=== PATIENT | male | born 1960 | race Caucasian/White ===

== ENCOUNTER → 2021-05-26 10:45 | Outpatient (CLI) | payer OTHER, SELFPAY ==
--- NOTE | ~2021-05-26 | XR_ITS ---
XR lumbar spine 2-3V DATE: 05/26/2021 11:37 INDICATION: Leg pain TECHNIQUE: AP, lateral, coned lateral lumbosacral views COMPARISON: 05/15/2019 lumbar spine FINDINGS: There is suspected L5 pars interarticularis defects with grade 1 anterolisthesis at L5-S1, stable since 05/15/2019. Diffuse osteopenia. No other fracture or bone destruction is evident. The lumbar pedicles are intact. There is moderate degenerative disc disease at L2-3, L3-4 and L5-S1. The sacroiliac joints appear normal. Surgical clips, right upper quadrant, consistent with cholecystectomy IMPRESSION: Grade 1 anterolisthesis at L5-S1, likely due to pars interarticularis defects Moderate degenerative disc disease at L2-3, L3-4 and L5-S1 Osteopenia Reviewed, dictated and finalized at location A. IMPRESSION: Grade 1 anterolisthesis at L5-S1, likely due to pars interarticular is defects Moderate degenerative disc disease at L2-3, L3-4 and L5-S1 Osteopenia
== END ==
PROVIDERS: PCP Family Medicine; Visit Provider Family Medicine
DX: M85.88 Other specified disorders of bone density and structure, other site (principal); M51.36 Other intervertebral disc degeneration, lumbar region
CPT/HCPCS: 72100

== ENCOUNTER → 2021-11-26 08:50 | Outpatient (CLI) | payer OTHER, SELFPAY ==
--- NOTE | ~2021-11-26 | MR_ITS ---
EXAMINATION: MR lumbar spine wo con EXAM DATE: 11/26/2021 09:34 INDICATION: Spondylosis with radiculopathy, lumbar region. TECHNIQUE: Multi-sequential, multiplanar MR images of the lumbar spine were obtained without contrast . Sagittal T1, T2, T2 fat saturation images. Axial T2 weighted images. There is no prior study for comparison. FINDINGS: Mild to moderate diffuse thoracolumbar disc disease with small Schmorl's nodes at most of t he endplates. Small L5-S1 annular fissure. The conus medullaris terminates at the T12-L1 level and sarmiento s normal signal intensity and morphology. There are no suspicious marrow signal abnormalities. There is 3 mm anterolisthesis L5 on S1. The vertebral bodies are otherwise aligned. Paraspinal soft tissue is unremarkable. Mild lumbar levoscoliosis. Level by level evaluation: T12-L1: There is a mild diffuse disc bulge. Facet arthropathy: Mild. Neural foraminal stenosis: No stenosis. Central canal stenosis: No stenosis. L1-L2: There is a minimal diffuse disc bulge. Facet arthropathy: Mild. Neural foraminal stenosis: No stenosis. Central canal stenosis: No stenosis. L2-L3: There is a moderate diffuse disc bulge. Facet arthropathy: Moderate. Neural foraminal stenosis: Mild to moderate left, mild right. Central canal stenosis: Mild to moderate. L3-L4: There is a moderate diffuse disc bulge. Facet arthropathy: Moderate. Neural foraminal stenosis: Moderate bilateral. Central canal stenosis: Moderate. L4-L5: There is a mild to moderate diffuse disc bulge. Facet arthropathy: Mild to moderate. Neural foraminal stenosis: Mild to moderate left, mild right. Central canal stenosis: Mild. L5-S1: There is a moderate diffuse disc bulge. Facet arthropathy: Mild. Neural foraminal stenosis: Mild to moderate bilateral. Central canal stenosis: Mild. IMPRESSION: 1. Moderate L3-4 spondylosis, less at other levels. Reviewed, dictated and finalized at location A. EE WEIGHER
== END ==
PROVIDERS: PCP Family Medicine; Visit Provider Family Medicine
DX: M47.26 Other spondylosis with radiculopathy, lumbar region (principal)
CPT/HCPCS: 72148

== ENCOUNTER 2022-07-12 01:21 | Day surgery (SDC) | payer OTHER, SELFPAY ==
[2022-06-27 16:10] VITALS: BMI 43.0
[2022-07-12 07:45] VITALS: BP 162/84; PULSE 70; RESP 18; TEMP 36.2; O2SAT 99
[2022-07-12] MEDS: LACTATED RINGERS 1,000 ML 150 ML IV CONT (07:56)
--- NOTE | 2022-07-12 08:09 | P.PNAN_ITS ---
Anes - Initial Pre Proc Eval Procedure: Operation Date: 07/12/22 08:30 Proposed Procedures p Screening Colonoscopy - Aj Conley MD Date/Time: 07/12/22 08:09 Surgeon: Aj Conley MD Pre Op Diagnosis: neoplasm screeing, history of colon polyps Patient Data Age: 61 Gender: M Height: 1.78 m Weight: 132.5 kg Last Vital Signs Temp 97.1 F L 07/12/22 07:45 Pulse 70 07/12/22 07:45 Resp 18 07/12/22 07:45 BP 162/84 H 07/12/22 07:45 Pulse Ox 99 07/12/22 07:45 O2 Del Method Room Air 07/12/22 07:45 Allergies Allergy/AdvReac Type Severity Reaction Status Date / Time No Known Allergies Allergy Unknown NONE Verified 07/12/22 07:44 Home Medications Medication Instructions Recorded Confirmed Type peg 3350-electrolytes 236 240 ml PO Q10M #4,000 mL 06/03/22 07/12/22 Rx gram-22.74 gram-6.74 gram-5.86 gram solution (Golytely) ascorbic acid (vitamin C) 500 mg 500 mg PO DAILY 06/27/22 07/12/22 History tablet gabapentin 600 mg tablet 600 mg PO TID 06/27/22 07/12/22 History hydrochlorothiazide 25 mg tablet 25 mg PO DAILY 06/27/22 07/12/22 History losartan 100 mg tablet 100 mg PO DAILY 06/27/22 07/12/22 History lovastatin 40 mg tablet 40 mg PO DAILY 06/27/22 07/12/22 History meloxicam 15 mg tablet 15 mg PO DAILY 06/27/22 07/12/22 History multivit with minerals-iron 18 1 tablet PO DAILY 06/27/22 07/12/22 History mg-folic ac 400 mcg-vit K 25 mcg tablet (Adults Multivitamin) omega-3 fatty acids-vitamin E 1 cap PO DAILY 06/27/22 07/12/22 History 1,000 mg capsule Patient hx anesthesia problems: none Family hx anesthesia problems: none Results Review: All pre-operative results and documents have been reviewed as part of the pre- operative evaluation. PMFSH Social History Social History Smoking packs per day: 3 Smoking cigarettes per day: 60.0 Years smoked: 20 Smoking pack-years: 60.00 Smoking status: Former smoker Tobacco type: cigarettes Alcohol intake: current Substance use: current Substance use type: does not use Living arrangements: with family Spiritual care concerns: No Anes - Eval Final PreProcedure Day of Procedure 07/12/22 08:09 Patient weight: morbidly obese Heart: regular rate and rhythm Lungs: clear to auscultation Airway: Mallampati scale class II Neurological: alert and oriented Last oral intake: >/= 8 hours ASA classification: III Emergent: no Anesthetic plan: proceed Anesthesia type and monitoring: general GIVS and standard monitoring Results Review: All pre-operative results and documents have been reviewed as part of the pre- operative evaluation. Informed Consent: The patient's anesthetic plan and its attendant risks and benefits were discussed with the patient/family/POA. Questions were solicited and answers provided to the satisfaction of the patient/family/POA.
--- NOTE | 2022-07-12 08:27 | P.HP_ITS ---
History of Present Illness History of Present Illness Consent: Risks, benefits, and alternatives have been discussed and questions answered. Patient agrees to proceed with procedure. Chief complaint: neoplasm screeing, history of colon polyps Narrative: Connor Spain is a 61 year old male Presents for screening colonoscopy. Patient's current weight appetite bowel movements are normal. Patient denies abdominal pain. Patient has a prior history of colon polyps. Most recent adenomatous colon polyp removed from the colon 2016. Family history noncontributory. Patient presents today for screening colonoscopy. [facility] [place] Social History Social History Smoking packs per day: 3 Smoking cigarettes per day: 60.0 Years smoked: 20 Smoking pack-years: 60.00 Smoking status: Former smoker Tobacco type: cigarettes Alcohol intake: current Substance use: current Substance use type: does not use Living arrangements: with family Spiritual care concerns: No Meds Home Medications and Allergies Home Medications Medication Instructions Recorded Confirmed Type peg 3350-electrolytes 236 240 ml PO Q10M #4,000 mL 06/03/22 07/12/22 Rx gram-22.74 gram-6.74 gram-5.86 [facility] ascorbic acid (vitamin C) 500 mg 500 mg PO DAILY 06/27/22 07/12/22 History tablet gabapentin 600 mg tablet 600 mg PO TID 06/27/22 07/12/22 History hydrochlorothiazide 25 mg tablet 25 mg PO DAILY 06/27/22 07/12/22 History losartan 100 mg tablet 100 mg PO DAILY 06/27/22 07/12/22 History lovastatin 40 mg tablet 40 mg PO DAILY 06/27/22 07/12/22 History meloxicam 15 mg tablet 15 mg PO DAILY 06/27/22 07/12/22 History multivit with minerals-iron 18 1 tablet PO DAILY 06/27/22 07/12/22 History mg-folic ac 400 mcg-vit K 25 mcg tablet (Adults Multivitamin) omega-3 fatty acids-vitamin E 1 cap PO DAILY 06/27/22 07/12/22 History 1,000 mg capsule Allergies Allergy/AdvReac Type Severity Reaction Status Date / Time No Known Allergies Allergy Unknown NONE Verified 07/12/22 07:44 Vital Signs Vital Signs - 24 hr 07/12/22 07:45 Temperature 97.1 F L Pulse Rate 70 Respiratory Rate 18 Blood Pressure 162/84 H Pulse Oximetry 99 Oxygen Delivery Room Air Exam Narrative: Physical exam reveals patient to be alert. Vital signs stable. HEENT exam is unremarkable. Patient is anicteric. Lungs are clear to auscultation and percussion. Heart is without murmur or extra sounds. Abdomen bowel sounds are present soft nontender with no organomegaly. Digital external rectal exam is normal. Assessment and Plan Assessment and plan (1) History of colon polyps: Code(s): Z86.010 - Personal history of colonic polyps Status: Acute Assessment and Plan: Patient has a history of adenomatous colon polyp 2017. Plan is for surveillance colonoscopy now and consider this a 5 year intervals in the future.
[2022-07-12 08:54] VITALS: BP 128/59; PULSE 66; RESP 13; O2SAT 97
[2022-07-12 09:04] VITALS: BP 126/61; PULSE 62; RESP 21; O2SAT 100
[2022-07-12 09:14] VITALS: BP 137/71; PULSE 65; RESP 14; O2SAT 100
== END 2022-07-12 09:24 | disposition home or self-care (01) ==
PROVIDERS: PCP Family Medicine; Visit Provider Internal Medicine Gastroenterology
PROC: 0DJD8ZZ Inspection of Lower Intestinal Tract, Via Natural or Artificial Opening Endoscopic (ICD-10-PCS; CPT 45378; principal; 2022-07-12 08:30)
DX: Z12.11 Encounter for screening for malignant neoplasm of colon (principal); Z86.010 Personal history of colon polyps; K57.30 Diverticulosis of large intestine without perforation or abscess without bleeding; K64.8 Other hemorrhoids; Z87.891 Personal history of nicotine dependence; E66.01 Morbid (severe) obesity due to excess calories; Z68.41 Body mass index [BMI] 40.0-44.9, adult
CPT/HCPCS: 45378; J2704; J7120

== ENCOUNTER 2023-01-06 14:38 | Outpatient (CLI) | payer OTHER, SELFPAY ==
--- NOTE | 2023-01-06 14:54 | ECG_ITS ---
Measurements Intervals [place] Rate: 71 P: 42 [place]: 211 QRS: 0 QRSD: 110 T: 11 QT: 399 QTc: 434 Interpretive Statements SINUS RHYTHM WITH FIRST DEGREE AV BLOCK LOW QRS VOLTAGE IN PRECORDIAL LEADS [QRS DEFLECTION < 1.0 mV IN CHEST LEADS] INFERIOR MYOCARDIAL INFARCTION [40+ ms Q WAVE AND/OR ST/T ABNORMALITY IN II/aVF], PROBABLY OLD NO PREVIOUS ECG AVAILABLE FOR COMPARISON Electronically Signed On 01-07-2023 15:02:43 CDT by Melonie Fermin M.D.
== END 2023-01-06 14:39 | disposition home or self-care (01) ==
PROVIDERS: PCP Family Medicine; Visit Provider Surgery
DX: K42.9 Umbilical hernia without obstruction or gangrene (principal); I10 Essential (primary) hypertension; Z01.818 Encounter for other preprocedural examination
CPT/HCPCS: 36415; 86850; 86900; 86901; 93005

== ENCOUNTER 2023-01-08 01:05 | Day surgery (SDC) | payer OTHER, SELFPAY ==
[2022-12-31 14:27] VITALS: BMI 41.5
--- NOTE | 2022-12-31 14:31 | PC.NURSE ---
Report to the Outpatient Waiting Room, entrance under the green pavilion located off [facility], at time 6:00 on date 01/08/23. Planned Procedure Time: 7:30. Time changes happen often and if your time is changed the preop area will call you the afternoon before. - You and your visitor will be asked to self-screen and do not enter if you have any COVID symptoms. - Only one visitor is requested with a max of two and NO children visitors are allowed at this time. - The patient visitor may be requested to leave or wait in car when not with patient due to distancing restrictions. - A mask is optional within the hospital at this time. Patients may have clear liquids (water, carbonated beverages, clear teas, apple juice) until 3 hours prior to surgery (4:30) with a maximum of 20 ounces. - No food from midnight until time of surgery Take the following medications with a SIP of water the morning of surgery: GABAPENTIN DO NOT STOP ANY OF YOUR OTHER PRESCRIPTION MEDICATIONS PRIOR TO SURGERY EXCEPT THE FOLLOWING Medications to discontinue per physician: VITAMINS/SUPPLEMENTS Date to take last dose: 01/04/23 Please no make-up, nail citizen of [place], hairspray, perfume, deodorant, or body powder the day of surgery. No jewelry (including any body piercings) or valuables the day of surgery, leave them at home. Please take a shower or bath the night before, or the morning of, surgery with an antibacterial soap (HIBICLENS). Wear comfortable, loose fitting clothing. - Jewelry must be removed prior to entering the operating room. Rings and piercings that are not removed may be cut off. - The hospital will not accept responsibility for valuables. - Please leave all valuables, including medications, at home the day of surgery. If you are going home after surgery, a licensed driver starting gate must drive you home. - NO public transportation without another adult if you receive anesthesia. - We recommend that an adult stay with you for 24 hours following discharge. - We also recommend that you do not drive, make important decision, drink alcoholic beverages, or take any drugs that were not prescribed by your health care provider for at least 24 hours after your discharge time. Follow any additional instructions given to you from your surgeon. If you or anyone in your household have experienced Covid symptoms in the past week, please notify your surgeon or the nurse liaison at the phone number below for possible testing. Telephone instructions given to MARLYN GARRETT and asked if any additional questions and then verbalized understanding. Patient advised to call surgeon office or pre surgery nurse liaison [phone] if any additional questions.
--- NOTE | 2023-01-07 13:10 | WPDANESEPPF ---
Anes - Initial Pre Proc Eval Procedure: Operation Date: 01/08/23 07:30 Proposed Procedures p Laparoscopic Umbilical Hernia Repair with Mesh, Davinci Assisted - Dave Gruber DO Date/Time: 01/07/23 13:10 Surgeon: Dave Gruber DO Pre Op Diagnosis: umbilical hernia Patient Data Age: 62 Gender: M Height: 1.78 m Weight: 131.55 kg Allergies Allergy/AdvReac Type Severity Reaction Status Date / Time No Known Allergies Allergy Verified 01/08/23 06:23 Home Medications Medication Instructions Recorded Confirmed Type ascorbic acid (vitamin C) 500 mg 500 mg PO DAILY 06/27/22 01/08/23 History tablet hydrochlorothiazide 25 mg tablet 25 mg PO DAILY 06/27/22 01/08/23 History losartan 100 mg tablet 100 mg PO DAILY 06/27/22 01/08/23 History lovastatin 40 mg tablet 40 mg PO DAILY 06/27/22 01/08/23 History meloxicam 15 mg tablet 15 mg PO DAILY 06/27/22 01/08/23 History multivit with minerals-iron 18 1 tablet PO DAILY 06/27/22 01/08/23 History mg-folic ac 400 mcg-vit K 25 mcg tablet (Adults Multivitamin) gabapentin 800 mg tablet 800 mg PO TID 12/03/22 01/08/23 History ECG: Date of Service: 01/06/23 Procedure(s): CA 12 lead EKG Accession Number(s): [id number] cc: ~ ? Measurements Intervals? [place]? Rate: ? 71 ? P:? 42 NE: ? 211? QRS:? 0 QRSD: ? 110? T:? 11 QT: ? 399? QTc:? 434? Interpretive Statements SINUS RHYTHM WITH FIRST DEGREE AV BLOCK LOW QRS VOLTAGE IN PRECORDIAL LEADS [QRS DEFLECTION < 1.0 mV IN CHEST LEADS] INFERIOR MYOCARDIAL INFARCTION [40+ ms Q WAVE AND/OR ST/T ABNORMALITY IN II/aVF], PROBABLY OLD NO PREVIOUS ECG AVAILABLE FOR COMPARISON Electronically Signed On 01-07-2023 15:02:43 CDT by Melonie Fermin M.D Patient hx anesthesia problems: none Family hx anesthesia problems: none Results Review: All pre-operative results and documents have been reviewed as part of the pre-operative evaluation. [facility] Past Medical History Medical History (Updated 01/07/23 @ 13:10 by Al Ramos MD) Abnormal results of liver function studies Benign essential hypertension Chronic venous hypertension (idiopathic) without complications of bilateral lower extremity Elevated blood-pressure reading, without diagnosis of hypertension Erectile dysfunction Hypercholesterolemia Hyperlipidemia, unspecified Impaired fasting glucose Morbid obesity with BMI of 40.0-44.9, adult Obstructive sleep apnea Other obesity due to excess calories Other spondylosis with radiculopathy, lumbar region Sciatica, right side Umbilical hernia Social History Social History Smoking packs per day: 3 Smoking cigarettes per day: 60.0 Years smoked: 30 Smoking pack-years: 90.00 Smoking status: Former smoker Tobacco type: cigarettes Second hand tobacco smoke exposure: No Smoking end date: 10/06/04 Alcohol intake: never Substance use: never Substance use type: does not use Lack of Transportation: No Lack of Food: Never True Current Housing: I Have Housing Concerned About Future Housing: No Difficulty Paying Gas/Electric Bills: No Difficulty Paying for Meds: No Currently Unemployed: No Difficulty w/ Childcare or Family Care: No Living arrangements: with family Occupation/Education: occupation Gender identity (if verbalized by the patient): Male Sexual Orientation (if Verbalized by the Patient): Straight or Heterosexual Spiritual care concerns: No Anes - Eval Final PreProcedure Day of Procedure 01/07/23 13:10 Patient weight: morbidly obese Heart: regular rate and rhythm Lungs: clear to auscultation Airway: Mallampati scale class
[2023-01-08] VITALS (10 sets, daily range): BP systolic 112–157; BP diastolic 63–76; PULSE 57–70; RESP 12–18; TEMP 36.2–36.4; O2SAT 91–97
[2023-01-08] MEDS: ACETAMINOPHEN 500 MG TABLET 1000 MG PO (06:40)
[2023-01-08] MEDS: KETOROLAC 15 MG/ML VIAL (*BKC) IV PUSH (06:40)
[2023-01-08] MEDS: LACTATED RINGERS 1,000 ML 30 ML IV CONT ×2 (06:41→10:05)
--- NOTE | 2023-01-08 07:14 | WPDHPUPDATE1 ---
History and Physical Update Update Date/Time: 01/08/23 07:14 History and Physical has been reviewed, including an updated exam of the patient. There are NO changes in the patient's condition. Risks, benefits, and alternatives have been discussed and questions answered. Patient agrees to proceed with procedure.
[2023-01-08] MEDS: ceFAZolin 3 GM/D5W 100 ML 100 ML IVPB (07:29)
--- NOTE | 2023-01-08 09:54 | W.PM.PROC2 ---
Procedure Note - Detailed Date of Procedure 01/08/23 Pre-op Diagnosis umbilical hernia Post-op Diagnosis Same Procedure Performed Laparoscopic 3cm Umbilical Hernia Repair with Mesh, da Stacey assisted Surgeon Dave Gruber DO Anesthesia General and Local (Exparel) Description of Procedure Procedure as well as risks, benefits, and alternatives were discussed with the patient. Written consent was obtained and placed in chart prior to procedure. Patient was brought back to surgical suite. He was placed supine on operating table. Time-out was done to confirm patient and procedure. He was then intubated by the anesthesia department. A bump was placed under his left hip, and the bed was flexed slightly to extend the space between his costal margin and iliac crest. His abdomen was prepped and draped in sterile fashion using chlorhexidine prep. A 5 millimeter incision was made in the left upper quadrant, and a 5 millimeter Optiview trocar was advanced through the abdominal layers under direct visualization. Once inside the abdominal cavity, carbon dioxide insufflation was used to create a pneumoperitoneum. His abdomen was inspected. An 8 millimeter incision was made in the left lower quadrant, and an 8 millimeter robotic trocar was placed under direct visualization. Another 8 millimeter incision was made in the left lateral abdomen, and an 8 millimeter robotic trocar was placed under direct visualization. Exparel was infiltrated along the lateral abdominal peck to perform a transversus abdominis plane block bilaterally. The 5 millimeter port was removed, the incision was extended to 8 millimeters, and a 8 millimeter port was placed under direct visualization. The robotic arms were brought up to the patient's bedside and secured to the ports. The camera and instruments were inserted, and I then moved over to the robotic console and took control of the camera and instruments. After careful thorough inspection of the abdominal cavity, I began my dissection at the hernia. A preperitoneal plane was developed starting along the left lateral abdomen and extending medially and then to the right lateral abdomen using scissors with electrocautery. The hernia sac was reduced from within hernia defect. I then measured the hernia size. The hernia measured 3 cm. The fascia was closed using an 0-Stratafix running suture in a vertical fashion. A 15 cm x 10 cm Bard soft mesh was then placed within the preperitoneal pocket. This was oriented vertically with the mesh centered on the hernia defect. The mesh was then secured to the abdominal wall using 3-0 Vicryl simple interrupted sutures at the 4 corners and at the central portion of the mesh. The peritoneum was then closed over the mesh using 3 0 V lock running absorbable suture. The repair was inspected, and one final inspection was made around the abdominal cavity. The robotic instruments were then removed, and the robotic arms were disengaged from the trocars. The ports were then removed under direct visualization, the camera was removed, and the pneumoperitoneum was released. The 0 Vicryl transfascial suture was tied down. The skin of the incisions was then approximated using 4-0 Monocryl subcuticular suture. Exofin glue was then applied on top. The patient was then awakened from anesthesia, extubated, and transferred to recovery. Implants Bard soft mesh 15 cm x 10 cm Estimated Blood Loss 5 Complications No immediate complications Condition Stable Disposition Same day [facility] Billing Surgery - Charge Forward: Surgery Billing
[2023-01-08] MEDS: oxyCODONE HCL (*CRX) 5 MG TAB IR PO (11:26)
[2023-01-08] MEDS: fentaNYL CITRATE INJ (*CRX) 100 MCG/2 ML VIAL 25 MCG IV PUSH (12:06)
== END 2023-01-08 12:48 | disposition home or self-care (01) ==
PROVIDERS: PCP Family Medicine; Visit Provider Surgery
PROC: (CPT 49593; principal; 2023-01-08 07:30)
DX: K42.9 Umbilical hernia without obstruction or gangrene (principal); I10 Essential (primary) hypertension; E78.00 Pure hypercholesterolemia, unspecified; G47.33 Obstructive sleep apnea (adult) (pediatric); M47.816 Spondylosis without myelopathy or radiculopathy, lumbar region; E66.01 Morbid (severe) obesity due to excess calories; Z68.41 Body mass index [BMI] 40.0-44.9, adult; Z87.891 Personal history of nicotine dependence
CPT/HCPCS: 49593; S2900; 36415; 86850; 86900; 86901; 93005; A9270; C1781; C9290; J0330; J0690; J1100; J1170; J1885; J2250; J2405; J2704; J2710; J3010; J7030; J7120

== ENCOUNTER → 2023-05-29 16:11 | Outpatient (CLI) | payer OTHER, SELFPAY ==
--- NOTE | ~2023-05-29 | MR_ITS ---
EXAMINATION: MR lumbar spine wo con DATE: 05/29/2023 16:36 INDICATION: Low back pain. Lumbar radiculopathy. TECHNIQUE: Magnetic resonance imaging (MRI) of the lumbar spine was performed without intravenous con trast. Sequences included sagittal T2-weighted FSE, sagittal T2-weighted FS FSE, sagittal T1-weighted FSE, and axial T2-weighted FSE. COMPARISON: Lumbar spine MRI 11/26/2021 FINDINGS: There is 7 degrees levocurvature of lumbar spine. There is mild chronic anterior wedging of T12 and L1 vertebral bodies. There are Schmorl's nodes at all levels. There is mildly decreased disc height at L2-L3, moderately decreased disc height at L3-L4, and mildly decreased disc height at L4-L 5 and L5-S1. The distal spinal cord signal intensity is normal. The conus medullaris is at T12. The f ollowing disc levels are specifically discussed: L1-L2: The disc does not extend beyond the endplate margin. There is mild right and moderate left fac et joint osteoarthritis. There is no neural foraminal stenosis. There is no central canal stenosis. L2-L3: The disc is bulging and has an annular fissure. There is severe bilateral facet joint osteoart hritis. There is mild bilateral neural foraminal stenosis. There is mild central canal stenosis. L3-L4: The disc is bulging and has an annular fissure. There is severe bilateral facet joint osteoart hritis. There is moderate bilateral neural foraminal stenosis. There is moderate central canal stenos is. L4-L5: The disc is bulging and has an annular fissure. There is severe bilateral facet joint osteoart hritis. There is mild right and moderate left neural foraminal stenosis. There is mild central canal stenosis. L5-S1: The disc is bulging and has an annular fissure. There is mild bilateral facet joint osteoarthr itis. There is mild bilateral neural foraminal stenosis. There is mild central canal stenosis. IMPRESSION: 1. Moderate lumbar spondylosis, worsened from 11/26/2021. Reviewed, dictated and finalized at location A.
== END ==
PROVIDERS: PCP Nurse Practitioner Family; Visit Provider Nurse Practitioner Family
DX: M47.26 Other spondylosis with radiculopathy, lumbar region (principal)
CPT/HCPCS: 72148

== ENCOUNTER 2024-05-11 18:04 | Emergency (ER) | payer OTHER, SELFPAY ==
--- NOTE | ~2024-05-11 | CT_ITS ---
EXAMINATION: CTA chest PE protocol DATE: 05/11/2024 21:26 INDICATION: Hypoxia, left leg swelling TECHNIQUE: Computed tomography angiography (CTA) of the chest was performed with 100 mL Omnipaque-350 intravenous contrast timed to evaluate the pulmonary arteries. Coronal maximum intensity projection 3D-reconstructions were created by the technologist. The dose-length product (DLP) was 553.44 mGy-cm. Automated exposure control and iterative reconstruction technique were employed. COMPARISON: None. FINDINGS: Lung parenchyma and airways: Emphysematous changes. Dependent atelectasis. Left lower lobe linear ate lectasis versus scar. Pleura: Trace left pleural fluid. Thoracic inlet, axillae and chest wall: Right upper extremity PICC, tip in the distal SVC. Thoracic aorta: No significant dilation. No dissection. Mild arch calcification. Mediastinum: Dilated central pulmonary arteries as can be seen with pulmonary arterial hypertension. Calcified nodes. Heart and pericardium: Small pericardial fluid collection. Coronary artery calcifications: Mild. Upper abdomen: Status post cholecystectomy. Bones: No acute osseous finding. Pulmonary arteries: Study quality: Borderline contrast bolus, overall diagnostic. No pulmonary emboli detected. IMPRESSION: No CT evidence of acute pulmonary embolus. Small left pleural effusion. Small pericardial effusion. Reviewed, dictated and finalized at location K.
--- NOTE | ~2024-05-11 | XR_ITS ---
EXAMINATION: XR chest 1V portable Exam Date/Time: 05/11/2024 18:25 CDT HISTORY: Hypoxia Comparison: CTPA 05/05/2024. RESULT: Lines, tubes, and devices: None. Lungs and pleura: Ill-defined, subsegmental patchy opacities in the left lower lung. Minimal left co stophrenic angle blunting. Cardiomediastinal silhouette: Stable. Other: No acute osseous or upper abdominal finding. IMPRESSION: Subsegmental left basilar atelectasis/consolidation. Possible small left pleural effusion. Reviewed, dictated and finalized at location K. IMPRESSION: Subsegmental left basilar atelectasis/consolidation. Possible small left pleura l effusion.
[2024-05-11 18:03] VITALS: BP 111/61; PULSE 102; RESP 19; TEMP 36.6; O2SAT 88
[2024-05-11 18:12] VITALS: RESP 15; O2SAT 96
--- NOTE | 2024-05-11 18:16 | ECG_ITS ---
Test Date: 2024-05-11 18:09:43 Measurements Intervals [place] Rate: 95 P: 1 [place]: 229 QRS: -20 QRSD: 93 T: -6 QT: 352 QTc: 443 Interpretive Statements SINUS RHYTHM WITH MARKED SINUS ARRHYTHMIA WITH FIRST DEGREE AV BLOCK No previous ECG available for comparison Electronically Signed On 05-12-2024 17:07:10 CDT by Melonie Fermin M.D.
[2024-05-11 18:55] LABS: Basophils Absolute Auto 0.1 K/mm3 (0.0-0.1); Basophils Percent Auto 0.4 % (0.2-1.2); Eosinophils Absolute Auto 0.1 K/mm3 (0-0.3); Eosinophils Percent Auto 0.7 % (0-4.4); Hematocrit 30.4 % (42.0-52.0); Hemoglobin 9.1 g/dL (14.0-18.0); Immature Granulocyte Absolute 0.12 K/mm3 (0.00-0.031); Immature Granulocyte Percent A 0.9 % (0-0.5); Lymphocytes Percent Auto 10.6 % (18.3-44.2); Mean Corpuscular HGB Conc 29.9 g/dl (32-36); Mean Corpuscular Hemoglobin 26.8 pg (26-34); Mean Corpuscular Volume 89.7 fl (80-100); Monocytes Absolute Auto 0.9 K/mm3 (0.1-0.6); Monocytes Percent Auto 6.3 % (2.6-8.5); Neutrophils Absolute Auto 11.4 K/mm3 (1.3-6.7); Neutrophils Percent Auto 81.1 % (45.5-73.1); Platelet Count Result 658 k/mm3 (150-375); Red Blood Count 3.39 M/mm3 (4.6-6.20); Red Cell Distribution Width 15.6 % (11.5-14.5); White Blood Count 14.1 K/mm3 (4.5-10.0)
[2024-05-11 19:06] LABS: Alanine Aminotransferase 161 U/L (6-50); Albumin Level 3.8 g/dL (3.5-5.1); Alkaline Phosphatase 111 U/L (38-126); Anion Gap 10 mmol/L (4-12); Aspartate Amino Transferase 86 U/L (17-59); Bilirubin,Total 0.4 mg/dL (0.2-1.3); Blood Urea Nitrogen 35 mg/dL (9-20); Carbon Dioxide 32 mmol/L (22-30); Chloride 92 mmol/L (98-107); Estimated CRCL calculation 68 ml/min; Estimated Glomerular Filt Rate > 60; Glucose 108 mg/dL (65-110); Potassium 3.8 mmol/L (3.4-5.0); Sodium 134 mmol/L (137-145)
[2024-05-11 19:15] LABS: Platelet Estimate Increased (Adequate)
[2024-05-11 19:17] LABS: Hypochromasia 1+; Platelet Clumps Present
[2024-05-11 19:18] LABS: Anisocytosis 1+; Schistocytes None Seen
[2024-05-11 19:27] VITALS: BP 119/68; PULSE 69; RESP 14; O2SAT 98
[2024-05-11 19:40] LABS: D Dimer 3.87 ug/mL (<0.48)
--- NOTE | 2024-05-11 20:32 | ED.RECABL ---
HPI - Recheck/Abnormal Lab/Rx General Chief Complaint: Recheck/Abnormal Lab/Rx Stated Complaint: hypoxia Time Seen by Provider: 05/11/24 18:08 Source: patient and EMS Mode of arrival: EMS Limitations: no limitations History of Present Illness HPI narrative: This is a 63-year-old male, with history of stroke in July of 2023 at [facility] for pneumonia, brought in by EMS for hypoxia. The patient reportedly does not wear oxygen. He was noted to be hypoxic to 88% he was placed on initially 3 and 6 L with improvement to 94%. The patient has no complaints, aside from some left leg swelling, worse than usual. Has no other complaints at this time. Related Data Home Medications Medication Instructions Recorded Confirmed ascorbic acid (vitamin C) 500 mg 1,000 mg PO DAILY 06/27/22 04/30/24 tablet losartan 100 mg tablet 100 mg PO DAILY 06/27/22 04/30/24 gabapentin 800 mg tablet 800 mg PO TID 12/03/22 04/30/24 cholecalciferol (vitamin D3) 125 125 mcg PO DAILY 07/28/23 04/30/24 mcg (5,000 unit) capsule diazepam 5 mg tablet 5 mg PO Q8H PRN muscle spasms 03/23/24 04/30/24 methocarbamol 750 mg tablet 750 mg PO TID 03/23/24 04/30/24 naloxone 4 mg/actuation nasal spray 1 spray intranasal Q2-3M PRN 03/23/24 04/30/24 Opioid Reversal atorvastatin 80 mg tablet 80 mg PO HS 04/30/24 04/30/24 daptomycin 500 mg/50 mL in 0.9 % 550 mg IV DAILY 04/30/24 04/30/24 sodium chloride intravenous piggyback ertapenem 1 gram solution for 1 g IV DAILY 04/30/24 04/30/24 injection oxycodone-acetaminophen 5 mg-325 1 - 2 tablet PO Q6H PRN Pain 04/30/24 05/04/24 mg tablet (Scale Score 7-10) senna-docusate sodium 8.6 - 50 mg PO DAILY 04/30/24 04/30/24 Allergies Allergy/AdvReac Type Severity Reaction Status Date / Time No Known Allergies Allergy Verified 05/11/24 18:14 Review of Systems Review of Systems: All systems reviewed & are unremarkable except as noted in HPI and below PMFSH Past Medical History Medical History Abnormal results of liver function studies Benign essential hypertension Chronic venous hypertension (idiopathic) without complications of bilateral lower extremity Elevated blood-pressure reading, without diagnosis of hypertension Erectile dysfunction Hypercholesterolemia Hyperlipidemia, unspecified Impaired fasting glucose Ischemic stroke without residual deficits Morbid obesity with BMI of 40.0-44.9, adult Obstructive sleep apnea Other obesity due to excess calories Other spondylosis with radiculopathy, lumbar region Sciatica, right side Umbilical hernia Surgical History Surgical History H/O umbilical hernia repair Laparoscopic 3cm Umbilical Hernia Repair with Mesh, da Stacey assisted Social History Social History Smoking packs per day: 3 Smoking cigarettes per day: 60.0 Years smoked: 30 Smoking pack-years: 90.00 Smoking status: Never smoker Tobacco type: cigarettes Second hand tobacco smoke exposure: No Smoking end date: 10/06/04 Alcohol intake: never Substance use: never Substance use type: does not use Do You Feel Safe in your Home?: Yes Lack of Transportation: No Lack of Food: Never True Current Housing: I Have Housing Concerned About Future Housing: No Difficulty Paying Gas/Electric Bills: No Difficulty Paying for Meds: No Currently Unemployed: No Education: Don't Know Difficulty w/ Childcare or Family Care: No Living arrangements: with family Occupation/Education: occupation Gender identity (if verbalized by the patient): Male Sexual Orientation (if Verbalized by the Patient): Straight or Heterosexual Spiritual care concerns: No Exam Narrative: GENERAL: Well-developed, well-nourished, and in no acute distress. HEAD: Normocephalic, atraumatic. EYES: PERRLA and EOMI. FLORI
[2024-05-11 21:56] VITALS: BP 115/60; PULSE 98; RESP 15; O2SAT 95
--- NOTE | 2024-05-11 21:59 | PC.NURSE ---
[facility]
[2024-05-11 22:55] VITALS: TEMP 37.1
== END 2024-05-11 22:56 ==
PROVIDERS: Emergency Provider Preventive Medicine Aerospace Medicine; PCP Family Medicine
DX: J18.9 Pneumonia, unspecified organism (principal); R22.42 Localized swelling, mass and lump, left lower limb; I10 Essential (primary) hypertension; E78.5 Hyperlipidemia, unspecified; F17.210 Nicotine dependence, cigarettes, uncomplicated
CPT/HCPCS: 36415; 71045; 71275; 80053; 85025; 85380; 93005; 99284; Q9967

== ENCOUNTER 2024-05-20 09:37 | Outpatient (CLI) | payer OTHER, SELFPAY ==
[2024-05-20 10:11] LABS: Hemoglobin 9.8 g/dL (14.0-18.0); Mean Corpuscular HGB Conc 30.6 g/dl (32-36); Mean Corpuscular Volume 88.2 fl (80-100); Mean Platelet Volume 8.9 fl (7.4-10.4); Platelet Count Result 464 k/mm3 (150-375); Red Blood Count 3.63 M/mm3 (4.6-6.20); Red Cell Distribution Width 15.7 % (11.5-14.5); White Blood Count 10.1 K/mm3 (4.5-10.0)
[2024-05-20 10:27] LABS: Alanine Aminotransferase 79 U/L (6-50); Albumin Level 3.6 g/dL (3.5-5.1); Alkaline Phosphatase 96 U/L (38-126); Anion Gap 11 mmol/L (4-12); Aspartate Amino Transferase 47 U/L (17-59); Bilirubin,Total 0.6 mg/dL (0.2-1.3); Blood Urea Nitrogen 17 mg/dL (9-20); Calcium 9.4 mg/dL (8.4-10.2); Carbon Dioxide 25 mmol/L (22-30); Chloride 101 mmol/L (98-107); Estimated Glomerular Filt Rate > 60; Glucose 100 mg/dL (65-110); Potassium 4.5 mmol/L (3.4-5.0); Sodium 137 mmol/L (137-145)
== END 2024-05-20 09:38 | disposition home or self-care (01) ==
LOC: ANHLAB 09:39
PROVIDERS: PCP Family Medicine; Visit Provider Family Medicine
DX: D64.9 Anemia, unspecified (principal); I10 Essential (primary) hypertension; R94.5 Abnormal results of liver function studies
CPT/HCPCS: 36415; 80053; 85027

== ENCOUNTER 2025-06-15 14:42 | Outpatient (CLI) | payer MEDICARE, OTHER, SELFPAY ==
--- NOTE | ~2025-06-15 | XR_ITS ---
EXAMINATION: XR knee RT 3V, 06/15/2025 14:50 CDT HISTORY: posterior rt knee pain X1.5 months COMPARISON: No comparisons available. Findings: No acute fracture or malalignment. No significant degenerative changes. Soft tissues unremarkable. Impression: No acute fracture or malalignment. Reviewed, dictated and finalized at location A. Impression: No acute fracture or malalignment.
== END 2025-06-15 14:43 | disposition home or self-care (01) ==
LOC: MICIMG 14:44
PROVIDERS: PCP Family Medicine; Visit Provider Family Medicine
DX: M25.561 Pain in right knee (principal)
CPT/HCPCS: 73562